=== PATIENT | female | born 1980 | race Caucasian/White ===

== ENCOUNTER 2024-01-10 11:43 | Emergency (ER) | payer SELFPAY ==
[2024-01-10 11:44] VITALS: BP 118/76; PULSE 93; RESP 16; TEMP 36.6; O2SAT 99
--- NOTE | 2024-01-10 14:42 | CT_ITS ---
INDICATION: flank pain EXAMINATION: CT ABDOMEN AND PELVIS WITH CONTRAST - CT Abdomen And Pelvis W/ Contrast Injection TECHNIQUE: Helically acquired images were obtained of the abdomen and pelvis following IV contrast. A radiation dose optimization technique was used for this scan. IV Contrast dosage and agent: 100 cc [id number] Oral contrast: None. COMPARISON: None. FINDINGS: LOWER CHEST: Lung bases are clear. No cardiomegaly or pericardial effusion. LIVER: Homogeneous. No focal mass. GALLBLADDER AND BILIARY TREE: No calcified gallstones. No gallbladder distension or wall edema. No intra- or extrahepatic biliary ductal dilation. PANCREAS: No focal cystic or solid mass. SPLEEN: Normal size without focal cystic or solid mass. ADRENAL GLANDS: No nodules. KIDNEYS AND URETERS: Bilateral cortical cysts. No hydronephrosis. PERITONEUM: No ascites or free air. BOWEL: Normal appendix. No stomach or bowel distension. No focal inflammatory change. Diffusely increased colonic fecal burden. LYMPH NODES: No enlarged mesenteric or retroperitoneal lymph nodes. VESSELS: Aorta is non-dilated. URINARY BLADDER: Unremarkable. REPRODUCTIVE ORGANS: No pelvic masses. ABDOMINAL WALL: Fat-containing umbilical hernia. BONES: Unremarkable. CT/Abdomen/Pelvis W IV Cont ONLY IMPRESSION: No acute findings in the abdomen or pelvis. Colonic fecal burden consistent with clinical constipation. Electronically Signed: Jose A Coffey MD at 17:20 EDT ,
--- NOTE | 2024-01-10 14:42 | EX.ED.DYSGE1 ---
HPI <MALIK Hamm - Last Filed: 01/10/24 18:10> History of Present Illness Chief Complaint: Back Narrative Narrative: Patient is a 43-year-old female with no significant medical history who presents to the emergency department 3 to 4 days of left-sided flank pain, left back pain. Patient stated started off slowly however it is significant at this time. She has significant pain with urination. Denies any bowel or bladder incontinence. Denies any fever or chills. She states the pain is a significant pressure, does not have any history of burning. PFSH <MALIK Hamm - Last Filed: 01/10/24 18:10> [facility] Home Medications ?Medication ?Instructions ?Recorded ?Last Taken ?Type cefdinir 300 mg capsule 300 mg PO BID #14 caps 01/10/24 Unknown Rx cyclobenzaprine 10 mg tablet 10 mg PO TID PRN Muscle Spasm #12 01/10/24 Unknown Rx TABLETS naproxen 500 mg tablet (Naprosyn) 500 mg PO BID PRN pain #20 tabs 01/10/24 Unknown Rx phenazopyridine 100 mg tablet 100 mg PO TID PRN pain 6 doses #6 01/10/24 Unknown Rx (Pyridium) tabs Allergy/AdvReac Type Severity Reaction Status Date / Time bee venom protein (honey Allergy Anaphylaxis Verified 01/10/24 11:44 bee) (bee sting) Penicillins (PCN) Allergy UNKNOWN Verified 01/10/24 11:44 Social History Smoking Status: Former smoker ROS <MALIK Hamm - Last Filed: 01/10/24 18:10> ROS ED ROS Narrative Constitutional: Negative for fever, chills, weight loss, weakness Eyes: Negative for vision loss, vision change, double vision ENT: Negative for any sore throat, ear pain, congestion Cardiovascular: Negative for any chest pain, tightness, palpitations Respiratory: Negative for any cough, sputum production, hemoptysis, dyspnea, dyspnea on exertion, orthopnea Gastrointestinal: Negative for any abdominal pain, nausea, vomiting, diarrhea, constipation, blood in stool, blood in vomit : Negative for any urinary frequency, retention, blood in urine. Positive for dysuria Muscle skeletal: Negative for any neck pain. Positive for left-sided back pain, left flank pain Neurological: Negative for any headache, syncope, dizziness Skin: Negative for any rashes, itching, abrasions, lacerations Psychiatric: Negative for any depression, anxiety, stress, suicidal ideation, homicidal ideation Hematologic: Negative for any excessive bruising, easy bleeding EXAM <MALIK Hamm - Last Filed: 01/10/24 18:10> Physical Exam Narrative Exam Narrative: Vital signs reviewed. HEET: Head normocephalic atraumatic, TMs clear bilaterally. Posterior pharynx is clear, moist mucous membranes. Nares clear bilaterally. Neck: Supple with no lymphadenopathy or tenderness. No signs of meningismus. Cardiac: Regular rate and rhythm no murmurs gallops or rubs, equal peripheral pulses bilaterally. Respiratory: Lungs clear to auscultation bilaterally. No chest tenderness. Abdomen: Soft, nontender, nondistended. No abdominal bruit or pulsatile masses. No hepatosplenomegaly Extremities: No peripheral edema, no signs of gross trauma or deformity. Active full range of motion of all extremities. Neuro: Cranial nerves II through XII intact, no focal neurological deficits. Skin: Clean dry and intact with no rash, purpura, petechiae, vesicles or pustules. Backs/flank: Positive for left-sided CVA tenderness no midline spinal tenderness, no deformity. Psych: Normal mood and affect. No SI, HI or acute psychosis. Const Vital Signs: 01/10/24 11:44 01/10/24 15:44 Temperature 98 F Temperature Source Temporal Pulse Rate 93 91 Respiratory Rate 16 16 Blood Pressure 118/76 123/76 H Blood Pressure Mean 90 91 Pulse Ox 99 99 Oxygen Delivery Method Room Air Room Air <Dr. Arturo Christianson DO - Last Filed: 01/10/24 18:15> Physical Exam Const Vital Signs: 01/10/24 11:44 01/10/24 15:44 Temperature 98 F Temperature Source Temporal Pulse Rate 93 91 Respiratory Rate 16 16 Blood Pressure 118/76 123/76 H Blood Pressure Mean 90 91 Pulse Ox 99 99 Oxygen Delivery Method Room Air Room Air [facility] <MALIK Hamm - Last Filed: 01/10/24 18:10> [facility] Lab Data Labs: Laboratory Results - last 24 hr 01/10/24 01/10/24 15:10 16:20 WBC 11.2 H RBC 4.80 Hgb 13.0 Hct 39.8 MCV 82.9 MCH 27.1 MCHC 32.7 RDW Std Deviation 45.1 H RDW Coeff of Amari 15.0 H Plt Count 280 MPV 10.2 Immature Gran % (Auto) 0.400 Neut % (Auto) 78.8 H Lymph % (Auto) 13.5 L [place] % (Auto) 6.6 Eos % (Auto) 0.4 Baso % (Auto) 0.3 Absolute Neuts (auto) 8.8 H Absolute Lymphs (auto) 1.51 Nucleated RBC % 0 Sodium 135 L Potassium 4.3 Chloride 102 Carbon Dioxide 28.0 Anion Gap 5 BUN 11 Creatinine 0.79 Est GFR (MDRD) Af Amer 103 Est GFR (MDRD) Non-Af 85 BUN/Creatinine Ratio 14.0 Glucose 108 H Calcium 10.0 Total Bilirubin 0.40 AST 31 ALT 34 Alkaline Phosphatase 129 H Total Protein 8.6 H Albumin 3.4 Globulin 5.2 H Albumin/Globulin Ratio 0.7 L Lipase 26 Serum , Qual NEGATIVE Urine Color Straw Urine Clarity Sl. Cloudy Urine pH 7.0 Ur Specific [place] 1.005 Urine Protein Negative Urine Glucose (UA) Normal Urine Ketones Negative Urine Occult Blood Negative Urine Nitrite Positive H Urine Bilirubin Negative Urine Urobilinogen Normal Ur Leukocyte Esterase 25 H Urine RBC 0 SEEN Urine WBC 0-5 SEEN Ur Squamous Epith Cells 5-10 SEEN Urine Bacteria 3+ Urine Mucus 0 SEEN Radiography Diagnostic Testing: Clinical Impression(s) from Imaging Studies Abdomen/Pelvis CT 01/10/24 14:42 IMPRESSION: No acute findings in the abdomen or pelvis. Colonic fecal burden consistent with clinical constipation. Electronically Signed: Jose A Coffey MD at 17:20 EDT , Treatment and Re-Evaluation :: Differential diagnosis includes however is not limited to: Obstructing uropathy, pyelonephritis, muscle skeletal back pain, kidney mass, UTI Patient appears to be in mild to moderate discomfort to the left flank. Patient's vital signs are stable, she does look nontoxic. Presenting to the emergency department with complaint of left-sided back pain and pain with urination. Patient received a full workup, including CBC CMP lipase, CT scan of the abdomen/pelvis with IV contrast. This is concerning for renal mass, renal infarct, obstructing uropathy. Urinalysis to be completed. Patient will receive IV fluids, Zofran morphine and Toradol. All radiologic examinations were read, reviewed by the emergency department attending. From these reads, a plan of care will be put in place. Patient will be reevaluated. Patient CBC shows slight leukocytosis white blood count 11.2, chemistries were unremarkable, alkaline phosphate slightly elevated 129, serum was negative. Patient on reevaluation was feeling improvement. Patient CT scan of the abdomen pelvis shows colonic fecal burden consistent with constipation, no acute findings in the abdomen or pelvis. Patient's urinalysis was positive for infection with 3+ bacteria 25 leukocytes, positive nitrites. This we sent for culture. Patient given IV Rocephin. Patient be given cefdinir twice a day for a week. Instructed to increase her hydration. Patient be given Pyridium as well as muscle relaxers anti-inflammatories. Instructed return for any worsening symptoms. All questions answered, stable for discharge. <Dr. Arturo Christianson, DO - Last Filed: 01/10/24 18:15> [facility] History & Record Review Discussion w/independent historian: Patient and Family Lab Data Attestation: I reviewed the patient's lab results. Labs: Laboratory Results - last 24 hr 01/10/24 01/10/24 15:10 16:20 WBC 11.2 H RBC 4.80 Hgb 13.0 Hct 39.8 MCV 82.9 MCH 27.1 MCHC 32.7 RDW Std Deviation 45.1 H RDW Coeff of Amair 15.0 H Plt Count 280 MPV 10.2 Immature Gran % (Auto) 0.400 Neut % (Auto) 78.8 H Lymph % (Auto) 13.5 L [place] % (Auto) 6.6 Eos % (Auto) 0.4 Baso % (Auto) 0.3 Absolute Neuts (auto) 8.8 H Absolute Lymphs (auto) 1.51 Nucleated RBC % 0 Sodium 135 L Potassium 4.3 Chloride 102 Carbon Dioxide 28.0 Anion Gap 5 BUN 11 Creatinine 0.79 Est GFR (MDRD) Af Amer 103 Est GFR (MDRD) Non-Af 85 BUN/Creatinine Ratio 14.0 Glucose 108 H Calcium 10.0 Total Bilirubin 0.40 AST 31 ALT 34 Alkaline Phosphatase 129 H Total Protein 8.6 H Albumin 3.4 Globulin 5.2 H Albumin/Globulin Ratio 0.7 L Lipase 26 Serum , Qual NEGATIVE Urine Color Straw Urine Clarity Sl. Cloudy Urine pH 7.0 Ur Specific [place] 1.005 Urine Protein Negative Urine Glucose (UA) Normal Urine Ketones Negative Urine Occult Blood Negative Urine Nitrite Positive H Urine Bilirubin Negative Urine Urobilinogen Normal Ur Leukocyte Esterase 25 H Urine RBC 0 SEEN Urine WBC 0-5 SEEN Ur Squamous Epith Cells 5-10 SEEN Urine Bacteria 3+ Urine Mucus 0 SEEN Radiography Diagnostic Testing: Clinical Impression(s) from Imaging Studies Abdomen/Pelvis CT 01/10/24 14:42 IMPRESSION: No acute findings in the abdomen or pelvis. Colonic fecal burden consistent with clinical constipation. Electronically Signed: Jose A Coffey MD at 17:20 EDT , Treatment and Re-Evaluation :: Differential diagnosis includes however is not limited to: Obstructing uropathy, pyelonephritis, muscle skeletal back pain, kidney mass, UTI Patient appears to be in mild to moderate discomfort to the left flank. Patient's vital signs are stable, she does look nontoxic. Presenting to the emergency department with complaint of left-sided back pain and pain with urination. Patient received a full workup, including CBC CMP lipase, CT scan of the abdomen/pelvis with IV contrast. This is concerning for renal mass, renal infarct, obstructing uropathy. Urinalysis to be completed. Patient will receive IV fluids, Zofran morphine and Toradol. All radiologic examinations were read, reviewed by the emergency department attending. From these reads, a plan of care will be put in place. Patient will be reevaluated. Patient CBC shows slight leukocytosis white blood count 11.2, chemistries were unremarkable, alkaline phosphate slightly elevated 129, serum was negative. Patient on reevaluation was feeling improvement. Patient CT scan of the abdomen pelvis shows colonic fecal burden consistent with constipation, no acute findings in the abdomen or pelvis. Patient's urinalysis was positive for infection with 3+ bacteria 25 leukocytes, positive nitrites. This we sent for culture. Patient given IV Rocephin. Patient be given cefdinir twice a day for a week. Instructed to increase her hydration. Patient be given Pyridium as well as muscle relaxers anti-inflammatories. Instructed return for any worsening symptoms. All questions answered, stable for discharge. I have personally performed a face to face assessment of the patient and have reviewed the CHRISTIAN Note. I performed a substantive portion of the visit including all aspects of the following. My bagley findings include: History is 43-year-old female presenting to the emergency room with a chief complaint of left flank pain. Patient notes she developed pain over the past couple days. Is worse with certain movements and with urinating. She denies hematuria. She denies personal history of kidney stones. No fevers or rashes. No recent trauma. No radicular pain. No abdominal pain. Exam is I do not appreciate any rashes. The abdomen is benign. Normal neurologic exam. Tenderness to palpation over the left lumbar paraspinal CVA region. Medical Decison Making basic blood work shows normal creatinine. Nonspecific elevation of white count at 11.2 78.8 neutrophils. Alkaline phosphatase 129 normal liver enzymes. test negative. Urinalysis with 5-10 squamous cells 3+ bacteria positive nitrates positive leukocyte esterases. 0-5 white cells. [address] of the abdomen pelvis with IV contrast was obtained. This shows no obvious inflammatory changes. I do not see any perinephric stranding or obvious ureteral stone. No retroperitoneal masses/hematoma. Patient was treated with pain medication and shows improvement. Urine culture will be sent. Would recommend follow-up if she can establish primary care return if continued symptoms/worsening Discharge Plan Triage Chief Complaint: Back ED Midlevel Provider: Irving Salinas ED Provider: Arturo Christianson Dx/Rx/DC Orders Clinical Impression: Dysuria, UTI (urinary tract infection), Constipation, Acute lumbar myofascial strain Instructions: Urinary Tract Infections in Women, Understanding Lumbosacral Strain, ED Constipation (Adult) Prescriptions: New cefdinir 300 mg capsule 300 mg PO BID Qty: 14 0RF phenazopyridine [Pyridium] 100 mg tablet 100 mg PO TID PRN (Reason: pain) Qty: 6 0RF naproxen [Naprosyn] 500 mg tablet 500 mg PO BID PRN (Reason: pain) Qty: 20 0RF cyclobenzaprine 10 mg tablet 10 mg PO TID PRN (Reason: Muscle Spasm) Qty: 12 0RF Primary Care Provider: Care Physician,No Primary Referrals: Care Physician,No Primary [Primary Care Provider] - Activity Restrictions/Additional Instructions: Please follow-up outpatient. Take your antibiotics until finished. Print Language: Chinese Disposition Disposition: Home, Self Care
[2024-01-10] MEDS: 0.9% Normal Saline (1000mL) 1,000 ML 999 ML IV (14:58)
[2024-01-10] MEDS: Ondansetron 4 MG/2 ML Vial IV (14:59)
[2024-01-10] MEDS: Ketorolac 15 MG/ML Vial IV (14:59)
[2024-01-10] MEDS: Morphine 4 MG/ML Syringe IV (15:00)
[2024-01-10 15:31] LABS: Absolute Lymphocyte Count 1.51 X10^3/uL (0.83-4.51); Absolute Neutrophil Count 8.8 X10^3/uL (2.0-7.7); Basophil# 0.03 X10^3/uL; Basophil% 0.3 % (0-1); Eosinophil# 0.05 X10^3/uL; Eosinophils% 0.4 % (0-5); Hematocrit 39.8 % (37-47); Lymphocyte # 1.51 X10^3/ul (0.83-4.51); Lymphocyte % 13.5 % (19-41); Mean Corp Hgb Conc 32.7 g/dL (32-36); Mean Corpuscular Hgb 27.1 pg (27.0-32.0); Mean Corpuscular Volume 82.9 fL (81-99); Mean Platelet Vol. 10.2 fl (6.2-12.0); Monocyte# 0.74 X10^3/uL; Monocyte% 6.6 % (0-10); NRBC Flagged by Analyzer 0 % (0-5); Neutrophil % 78.8 % (47-70); Platelet Count 280 K/mm3 (150-450); RBC Distribution Width SD 45.1 fl (35.1-43.9); White Blood Count 11.2 K/mm3 (4.4-11.0)
[2024-01-10 15:44] VITALS: BP 123/76; PULSE 91; RESP 16; O2SAT 99
[2024-01-10 15:51] LABS: ALB/GLOB Ratio 0.7 RATIO (0.9-2.4); AST(SGOT) 31 U/L (15-37); Alanine Aminotransfer ALT/SGPT 34 U/L (13-56); Albumin, Serum 3.4 g/dL (3.2-5.0); Alkaline Phosphatase 129 U/L (45-117); Anion Gap 5 (5-15); BUN 11 mg/dL (7-18); Chloride 102 mmol/L (98-107); Creatinine, Serum 0.79 mg/dL (0.55-1.02); EST Glomerular Filtration Rate 85 mL/min (>60); Est Glom Filt Rate - Afr Amer 103 mL/min (>60); Globulin 5.2 g/dL (2.2-4.2); Glucose 108 mg/dL (74-106); Lipase 26 U/L (13-75); Potassium 4.3 mmol/L (3.5-5.1); Protein, Total 8.6 g/dL (6.4-8.2); Sodium Level 135 mmol/L (136-145)
[2024-01-10 16:09] LABS: Internal QC Validated? YES +Cl - CLEAR BKGD; Pregnancy, Serum, hCG Quali. NEGATIVE Negative; Record Kit Lot#, Serum Preg. 772476
[2024-01-10 16:27] LABS: Mucous, Urine 0 SEEN /hpf (<or=2+); Red Blood Cells-Urine 0 SEEN /hpf (0-5)
[2024-01-10 16:29] LABS: Color, Urine Straw (Yellow); Glucose, Dipstick Normal (Normal); Ketone-Dipstick Negative (Negative); Leukocyte Esterase-Dipstick 25 /ul (Negative); Nitrite-Dipstick Positive (Negative); Occult Blood-Urine Negative /ul (Negative); Protein-Dipstick Negative (Negative); Specific Gravity, Urine 1.005 (1.002-1.030); Urine Bilirubin Dipstick Negative (Negative); Urine Clarity Sl. Cloudy (Clear); Urine Urobilinogen Normal (Normal)
[2024-01-10 16:32] LABS: Bacteria 3+ /hpf (None Seen); Squamous Epithelial Cells - UA 5-10 SEEN /hpf (5-10); White Blood Cells 0-5 SEEN /hpf (0-5)
== END 2024-01-10 18:17 | disposition home or self-care (01) ==
PROVIDERS: Nurse Practitioner; Emergency Provider Emergency Medicine; Visit Provider Emergency Medicine
DX: N39.0 Urinary tract infection, site not specified (principal); R30.0 Dysuria; K59.00 Constipation, unspecified; S39.012A Strain of muscle, fascia and tendon of lower back, initial encounter; Z87.891 Personal history of nicotine dependence; X58.XXXA Exposure to other specified factors, initial encounter
CPT/HCPCS: 74177; 80053; 81001; 83690; 84703; 85025; 87086; 87088; 87186; 96374; 96375; 99282; J7030; Q9967; A4216; J2405